=== PATIENT | male | born 1975 | race Two or more races ===

== ENCOUNTER 2020-10-31 11:52 | Outpatient (REF) | payer OTHER, SELFPAY ==
[2020-10-31 14:48] LABS: Hematocrit 44.5 % (42-52); Hemoglobin 14.9 g/dl (14.0-18.0); Mean Corpuscular HGB Conc 33.5 g/dl (31.0-36.0); Mean Corpuscular Hemoglobin 30.7 pg (27.0-33.0); Mean Corpuscular Volume 91.6 fL (80-98); Platelet Count 376 X10*3/uL (160-400); Red Blood Count 4.86 X10*6/uL (4.60-5.80); Red Cell Distribution Width 12.8 % (11.0-16.0); White Blood Count 5.2 X10*3/uL (4.8-10.8)
[2020-10-31 15:17] LABS: Alanine Aminotransferase 33 U/L (0-40); Alkaline Phosphatase 105 U/L (39-117); Anion Gap 13 (12-20); Aspartate Amino Transferase 18 U/L (5-37); Bilirubin Direct 0.2 mg/dL (0.0-0.5); Bilirubin Total 0.5 mg/dL (0.0-1.0); Blood Urea Nitrogen 15 mg/dL (9-16); Carbon Dioxide 28 mmol/L (22-29); Chloride 102 mmol/L (96-108); Cholesterol 286 mg/dL; Estimated Glomerular Filt Rate > 60; Glucose Fasting 93 mg/dL (60-99); HDL Cholesterol 50 mg/dL; LDL Cholesterol Calculated 201 mg/dl; Potassium 4.7 mmol/l (3.3-5.1); Sodium 138 mmol/L (135-145); Total Protein 7.4 g/dL (6.5-8.0); Triglycerides 176 mg/dL
[2020-10-31 15:37] LABS: TSH reflex Free T4 1.55 mIU/mL (0.32-4.0)
== END 2020-10-31 11:53 | disposition home or self-care (01) ==
LOC: HO.WFDLDS 11:52
PROVIDERS: PCP Hospitalist; Visit Provider Hospitalist
DX: Z00.01 Encounter for general adult medical examination with abnormal findings (principal)
CPT/HCPCS: 36415; 80048; 80061; 80076; 84443; 85027

== ENCOUNTER 2020-11-11 13:27 | Outpatient (REF) | payer OTHER, MEDICAID, SELFPAY ==
--- NOTE | 2020-11-11 13:27 | XR_ITS ---
EXAMINATION: XR LUMBOSACRAL SPINE CLINICAL INFORMATION: Pain COMPARISON: None TECHNIQUE: Three views of the lumbosacral spine. FINDINGS: There is mild grade 1 8 mm anterior subluxation of L5 with respect to S1. There is an L5 pars defect. Bone alignment is otherwise normal. No other fracture or dislocation is seen. There is evidence of degenerative disc disease of the lower lumbar spine and at L5-S1. Disc spaces are otherwise normal. Paraspinal soft tissues are normal XR/XR lumbar spine 2-3V IMPRESSION: Spondylolisthesis and probable spondylolysis at L5-S1. Degenerative disc disease at L5-S1 and in the lower thoracic spine.
== END 2020-11-11 13:28 | disposition home or self-care (01) ==
LOC: HO.XRAY 13:27
PROVIDERS: Visit Provider Hospitalist
DX: M54.5 Low back pain (principal); G89.29 Other chronic pain
CPT/HCPCS: 72100